=== PATIENT | female | born 1990 | race Caucasian/White ===

== ENCOUNTER → 2022-03-01 | Outpatient (CLI) | payer SELFPAY ==
--- NOTE | 2022-03-01 09:15 | CDU_ITS ---
Reason For Study: bruit Rt. Velocities/BP Lt. Velocities/BP Prox CCA 96.6/23.9 cm/sec. Prox CCA 125.3/34.0 cm/sec. Mid CCA 83.4/17.3 cm/sec. Mid CCA 107.0/34.0 cm/sec. Dist CCA 86.3/23.0 cm/sec. Dist CCA 94.1/29.0 cm/sec. Prox ICA 80.6/28.9 cm/sec. Prox ICA 56.0/25.3 cm/sec. Mid ICA 100.3/43.2 cm/sec. Mid ICA 89.1/41.3 cm/sec. Dist ICA 102.5/44.3 cm/sec. Dist ICA 125.3/46.8 cm/sec. Rt. ICA/CCA = 1.2. Lt. ICA/CCA = 1.2. Prox ECA 94.8/8.8 cm/sec. Prox ECA 90.4/16.7 cm/sec. Rt. Vert. 39.1/4.0 cm/sec. Lt. Vert. 52.3/16.0 cm/sec. Right Extracranial There is intimal thickening but no significant atherosclerotic plaque noted in the right common carotid artery. There is intimal thickening but no significant atherosclerotic plaque noted in the right internal carotid artery. There is intimal thickening but no significant atherosclerotic plaque noted in the right external carotid artery. Antegrade flow is noted in the right vertebral artery. Right vertebral arteries are diminutive in size. Left Extracranial There is intimal thickening but no significant atherosclerotic plaque noted in the left common carotid artery. There is intimal thickening but no significant atherosclerotic plaque noted in the left internal carotid artery. There is intimal thickening but no significant atherosclerotic plaque noted in the left external carotid artery. Antegrade flow is noted in the left vertebral artery. Procedure Carotid Duplex 92218. This is a Carotid Duplex examination using B-mode, color flow and specral Doppler. The exam was diagnostic. Exam performed in department. VL/Carotid Duplex Ultrasound Interpretation Summary Normal right extracranial internal carotid. Normal left extracranial internal carotid. Patent and antegrade vertebrals bilaterally. Ordering Physician: Stanley Rodriguez Performed By: Crescencio Woods RVT
== END | disposition home or self-care (01) ==
PROVIDERS: PCP Family Medicine; Referring Provider Family Medicine; Visit Provider Family Medicine
DX: R09.89 Other specified symptoms and signs involving the circulatory and respiratory systems (principal)
CPT/HCPCS: 93880